=== PATIENT | female | born 1965 | race Two or more races ===

== ENCOUNTER 2016-09-13 11:39 | Emergency (ER) | payer OTHER ==
[~2016-09-13] VITALS: Ht 177.8 cm; Wt 122.5 kg
--- NOTE | 2016-09-13 11:56 | NUR ---
Patient discharged to home in stable conditon. Written and verbal after care instructions given. Patient verbalizes understanding of instructions.
== END 2016-09-13 11:57 | disposition home or self-care (01) ==
LOC: ER 11:42
DX: S80.11XA Contusion of right lower leg, initial encounter (principal); W18.30XA Fall on same level, unspecified, initial encounter; Y93.89 Activity, other specified; Y92.9 Unspecified place or not applicable; Y99.9 Unspecified external cause status
CPT/HCPCS: A4663

== ENCOUNTER 2016-10-01 19:07 | Emergency (ER) | payer OTHER ==
[~2016-10-01] VITALS: Ht 177.8 cm; Wt 122.5 kg
[2016-10-01] MEDS ORDERED: LORAZEPAM 0.5 MG TABLET PO ONE (19:45)
[2016-10-01] MEDS ORDERED: LORAZEPAM 0.5 MG TABLET ONE (20:01)
[2016-10-01 20:09] LABS: BILIRUBIN,DIRECT 0.1 mg/dL (0.0-0.2); BILIRUBIN,TOTAL 0.2 mg/dL (0.2-1.0); CREATININE 0.9 mg/dL (0.6-1.3); POTASSIUM 3.8 mmol/L (3.5-5.1); TOTAL PROTEIN, SERUM 7.4 g/dL (6.4-8.2)
[2016-10-01 20:16] LABS: BASOPHILS % (AUTO) 0.2 % (0.0-2.0); EOSINOPHILS # (AUTO) 0.2 K/uL (0.0-0.7); EOSINOPHILS % (AUTO) 1.7 % (0.0-7.0); HEMATOCRIT 39.9 % (37-47); HEMOGLOBIN 12.8 G/DL (12.0-16.0); LYMPHOCYTES # (AUTO) 2.3 K/UL (0.8-4.8); MEAN CORPUSCULAR HEMOGLOBIN 25.1 UUG (27.0-31.0); MEAN CORPUSCULAR HGB CONC 32 g/dL (32.0-37.0); MEAN CORPUSCULAR VOLUME 78.5 FL (81.0-99.0); MONOCYTES # (AUTO) 0.6 K/UL (0.1-1.30); MONOCYTES % (AUTO) 5.6 % (0.0-11.0); NEUTROPHILS % (AUTO) 69.5 % (38.5-71.5); PLATELET COUNT (AUTO) 325 K/UL (150-450); RED BLOOD CELL COUNT(AUTO) 5.09 MIL/UL (4.2-5.4); WHITE BLOOD COUNT (AUTO) 10.1 K/UL (4.0-11.2)
--- NOTE | 2016-10-01 20:51 | NUR ---
PT DENIES CP AT THIS TIME; VS WNL; DENIES SOB/ NAUSEA/CP. PT RECEIVED 800MG MOTRIN FOR LT NECK PAIN 3/10 SHARP/ NON-RADIATING.
[2016-10-01] MEDS ORDERED: IBUPROFEN 800 MG TABLET ONE (20:59)
[2016-10-01] MEDS ORDERED: IBUPROFEN 800 MG TABLET PO ONE (21:00)
--- NOTE | 2016-10-01 21:13 | NUR ---
Patient discharged to home in stable conditon. Written and verbal after care instructions given. PT ADVISED TO FOLLOWUP WITH PMD AND TO RETURN TO THE ED IF CONDITION WORSENS. Patient verbalizes understanding of instructions.
[2016-10-01 21:17] VITALS: BP 128/57
== END 2016-10-01 21:19 | disposition home or self-care (01) ==
LOC: ER 19:11
DX: F41.9 Anxiety disorder, unspecified (principal)
CPT/HCPCS: 36415; 70030-TC; 71010; 85025; 93005; A4663